=== PATIENT | female | born 1985 | race Native Hawaiian/Other Pacific Islander ===

== ENCOUNTER 2018-10-16 22:46 | Emergency (ER) | payer OTHER ==
[~2018-10-16] VITALS: Ht 160 cm; Wt 77.1 kg
[2018-10-17 01:05] VITALS: BP 105/67; TEMP 98.2
== END 2018-10-17 01:05 | disposition home or self-care (01) ==
LOC: ED 22:46
DX: S93.692A Other sprain of left foot, initial encounter (principal); M79.672 Pain in left foot; R22.42 Localized swelling, mass and lump, left lower limb; W18.39XA Other fall on same level, initial encounter; Y92.89 Other specified places as the place of occurrence of the external cause
CPT/HCPCS: 99283

== ENCOUNTER 2022-11-10 15:31 | Emergency (ER) | payer OTHER ==
[~2022-11-10] VITALS: Ht 160 cm; Wt 69.9 kg
[2022-11-10 18:30] LABS: PLATELET COUNT 339 K/uL (152-353)
[2022-11-10 18:33] LABS: POTASSIUM 3.9 mmol/L (3.6-5.2)
[2022-11-10 21:35] VITALS: BP 117/82; TEMP 97.6
== END 2022-11-10 21:35 | disposition home or self-care (01) ==
LOC: ED 15:31
PROVIDERS: Family Medicine
DX: K02.9 Dental caries, unspecified (principal); R68.84 Jaw pain; F17.210 Nicotine dependence, cigarettes, uncomplicated
CPT/HCPCS: 36415; 80053; 81025; 85027; 96374; 99284; J2270; Q9963